=== PATIENT | male | born 1970 | race Caucasian/White ===

== ENCOUNTER 2018-12-31 06:26 | Day surgery (SDC) | payer BC, SELFPAY ==
[2018-12-01 15:49] VITALS: BMI 28.3
[2018-12-31] VITALS (10 sets, daily range): BP systolic 127–159; BP diastolic 79–94; PULSE 65–76; RESP 16; TEMP 36.7–37.1; O2SAT 95–100; BMI 25.8
--- NOTE | 2018-12-31 | IMM_PTH ---
PATIENT: TRACI MARIE LOC: EN U#:[id number] AGE/SX: 48/M ROOM: RE12/31/[address]: Dr. Todd Ortega MD : 1970 BED: DIS: 12/31/2018 SPEC #: [id number] RECD: 01/03/19 12:36 STATUS: DANIELA REJose #: [id number] VIKI: 12/31/18 00:[address]: Todd Ortega DEPT: IMMUNOHISTOCHEMISTRY RECD BY: Lanny Couch ENTERED: 01/03/19 12:38 SP TYPE: IMMUNO OTHR DR: Dr. Todd Allred MD Tissues: B - Rectum, NOS Procedures: MSH2 (add) MLH-1 (add) MSH6 (add) Anti-PMS2 (add) MADDEN-2 (add) P53 (add) KI-67 (initial) PHYSICIAN & INSTITUTION [place] [address] SPECIMEN INFORMATION: Tissue Source: B - Biopsy lesion rectum at 6 cm Clinical Info: Screening Specimen Number: [id number] CPT code: 99524, 41245 x6 METHODOLOGY: Deparaffinized sections of prefer/formalin-fixed tissue or PAP/DQ stained slides are incubated with monoclonal/polyclonal antibodies/oligonucleotide probes. Localization is made via biotin free immunoperoxidase method. Appropriate controls are performed and reacted as expected. Results on target cell population are indicated in the following table: RESULTS: ANTIBODY / CLONE RESULT Block B Ki-67 (30-9) positive, high P53 (DO-7) positive, low MADDEN-2 (SP21) positive MLH-1 (M1) positive MSH2 (25D12) positive MSH6 (44) positive PMS2 (PZS3656) positive These tests were developed and their performance characteristics determined by [facility]. They may not have been cleared or approved by the U.S. Food and Drug Administration. The FDA has determined that such clearance or approval is not necessary. INTERPRETATION: Rectum lesion at 6 cm, biopsy: Invasive adenocarcinoma. Result of Microsatellite Instability Study: Negative (no loss of mismatch protein; no microsatellite instability detected). SJ:laurence 01/04/19
--- NOTE | 2018-12-31 07:30 | COLBX_PTH ---
PATIENT: TRACI MARIE LOC: EN U#:[id number] AGE/SX: 48/M ROOM: RE12/31/[address]: Dr. Todd Ortega MD : 1970 BED: DIS: 12/31/2018 SPEC #: [id number] RECD: 12/31/18 10:09 STATUS: DANIELA DEVIN #: [id number] VIKI: 12/31/18 07:[address]: Todd Ortega DEPT: SURGICAL PATHOLOGY RECD BY: Bonifacio Carpenter ENTERED: 12/31/18 10:59 SP TYPE: COLON BX OTHR DR: Dr. Todd Allred MD Tissues: A - Descending colon B - Rectum, NOS C - Rectum, NOS Procedures: Surgery Specimen Level IV HEADER OPERATION: Colonoscopy (MOD) PRE-OP DIAGNOSIS: Screening TISSUE SUBMITTED: A - Polyp descending colon, B - Biopsy lesion rectum at 6 cm, C - Snare lesion rectum proximal to rectal verge MICROSCOPIC DIAGNOSIS A. Polyp descending colon, biopsy: Tubular adenoma. B. Rectal lesion at 6 cm, biopsy: Invasive moderately differentiated adenocarcinoma arising in the background of tubulovillous adenoma. See comment. C. Snare polyp lesion, rectum, proximal to anal verge, biopsy; Fragments of tubulovillous adenoma. SJ:rg 01/03/19 COMMENT B. Results of immunohistochemistry for microsatellite instability ([id number]) will be reported separately. Case has been reviewed in consultation with Dr. Cuevas who concurs with the above diagnosis. IDC:AM MICROSCOPIC DESCRIPTION Slides are reviewed. GROSS DESCRIPTION A - Received in fixative is one container labeled with the patient's name and designated polyp descending colon. The specimen consists of a piece of quintero-pink polyp measuring 0.3 x 0.3 x 0.2 cm. The specimen is totally submitted in one cassette. B - Received in fixative is one container labeled with the patient's name and designated biopsy lesion rectum at 6 cm. The specimen consists of multiple irregular fragments of light quintero soft tissue that in aggregate measure 1 x 0.5 x 0.1 cm. The specimen is totally submitted in one cassette. C - Received in fixative is one container labeled with the patient's name and designated snare polyp lesion rectum proximal to anal verge. The specimen consists of multiple irregular fragments of quintero-pink polyp, variable size, that in aggregate measure 1.2 x 1 x 0.3 cm. The entire specimen is submitted in one cassette. / SJ:rg 12/31/18 TC:0 [facility]: [address] x3 ADDENDUM ADDENDUM ADDENDUM ADDENDUM ADDENDUM ADDENDUM ADDENDUM ADDENDUM ADDENDUM ADDENDUM ADDENDUM ADDENDUM 01/20/2019 11:18 ADDENDUM 01/20/2019 11:18 ADDENDUM 01/20/2019 11:18 ADDENDUM 01/20/2019 11:18 ADDENDUM 01/20/2019 11:18 This addendum is added to incorporate an outside pathology consultation report. The case was examined at [facility] (#[id number]) and the following diagnosis was rendered. A. Descending colon, polypectomy: Tubular adenoma. B. Rectal mass, biopsy: Invasive adenocarcinoma in the background of a tubulovillous adenoma. C. Rectum, polypectomy: Fragments of tubulovillous adenoma. Please see complete above mentioned consultation report in EMR
--- NOTE | 2018-12-31 08:06 | OP.ENDO_ITS ---
12/31/2018 Todd Allred [address] [place] [address] Re : Colonoscopy procedure for Alfa Lu Dear Dr. Allred This procedure was performed on Monday, December 31, 2018. My impressions and recommendations are as follows: Impressions : - Rectal mass x 2. One larger and ulcerated at 6cm and one very close to the anal verge and approximately 2.5cm - Likely malignant tumors in the distal rectum. Biopsied. - Diverticulosis in the sigmoid colon. - One 8 mm polyp in the descending colon, removed with a hot snare. Resected and retrieved. Recommendations : - Repeat colonoscopy in 1 year for surveillance. - Return to my office in 1 week. - Perform a CT scan (computed tomography) of abdomen with contrast and pelvis with contrast. - Perform magnetic resonance imaging (MRI) with gadolinium. - Continue present medications. My findings are described in the full procedure note, which is enclosed. If I can be of further assistance, please feel free to contact me at Doctor phone number(s): Work: . Sincerely, Todd Ortega MD 12/31/2018 8:05:49 AM This report has been signed electronically.
[2018-12-31 09:17] LABS: Hematocrit 41.8 % (40-54); Hemoglobin 14.6 g/dl (13.0-16.5); Mean Corp Hgb Conc 34.9 g/gl (32-36); Mean Corpuscular Hgb 29.7 pg (27.0-32.0); Mean Corpuscular Volume 85.1 fL (80-94); Mean Platelet Vol. 9.5 fl (6.2-12.0); Platelet Count 274 K/mm3 (150-450); RBC Distribution Width CV 12.8 % (11.6-14.6); RBC Distribution Width SD 39.4 fl (35.1-43.9); Red Blood Count 4.91 M/mm3 (4.6-6.2); Scan Indicated on CBC? Y/N NO
[2018-12-31 09:45] LABS: ALB/GLOB Ratio 1.1 RATIO (0.9-2.4); AST(SGOT) 31 U/L (15-37); Alanine Aminotransfer ALT/SGPT 45 U/L (16-61); Albumin, Serum 4.2 g/dL (3.2-5.0); Alkaline Phosphatase 49 U/L (45-117); Anion Gap 4 (5-15); BUN 14 mg/dL (7-18); BUN/Creat Ratio 12.7 RATIO (10-20); Calcium,Total 8.6 mg/dL (8.5-10.1); Chloride 106 mmol/L (98-107); EST Glomerular Filtration Rate 75 mL/min (>60); Est Glom Filt Rate - Afr Amer 91 mL/min (>60); Estimated Creatinine Clearance 75.11 ml/min; Globulin 3.7 g/dL (2.2-4.2); Glucose 100 mg/dL (74-106); Protein, Total 7.9 g/dL (6.4-8.2); Sodium Level 138 mmol/L (136-145)
--- NOTE | 2018-12-31 11:59 | CT_ITS ---
STUDY: CT ABDOMEN AND PELVIS WITH CONTRAST REASON FOR EXAM: Male, 48 years old. Recent diagnosis of rectal carcinoma. RADIATION DOSAGE (If Supplied By Facility): CTDIvol = ( 15.10 ) mGy, DLP = ( 972.56 ) mGycm TECHNIQUE: Transaxial images were obtained from the dome of the diaphragm to the symphysis pubis with oral contrast. 100ML IV/Oral Isovue 300 was administered. Sagittal and coronal images were reconstructed. Individualized dose optimization techniques were used for this CT. COMPARISON: None. FINDINGS: The visualized lung bases are unremarkable. The visualized portions of the heart are within normal limits. Normal liver. Normal gallbladder and extrahepatic biliary system. Normal spleen. Normal pancreas. Normal bilateral adrenal glands. Normal right kidney. Normal left kidney. Normal visualized stomach. Normal small intestine. There is a 2.8 cm x 2.9 cm soft tissue mass arising from the right side of the rectum. This most likely corresponds to the known rectal carcinoma. The appendix is visualized and appears normal. Normal abdominal aorta. Normal inferior vena cava. Normal retroperitoneum. Normal urinary bladder. There is a small umbilical hernia containing fat. Small right inguinal hernia containing fat. There are degenerative changes of the visualized lumbar spine. CT/Abdomen/Pelvis WITH Contrast IMPRESSION: 2.8 cm x 2.9 sinus soft tissue mass arising from the right side of the rectum. No other abnormalities. Electronically Signed: Fareed Aviles, at 13:52 EDT , Service support ,
--- NOTE | 2018-12-31 13:56 | MRI_ITS ---
STUDY: MR PELVIS WITH T WITHOUT CONTRAST REASON FOR EXAM: Male, 48 years old. Abnormal colonoscopy. TECHNIQUE: Standardized fat and water weighted pulse sequences were obtained in all 3 orthogonal planes, pre-and post contrast administration. 15 IV Dotarem was administered for the contrast portion of the examination. COMPARISON: None. FINDINGS: Normal urinary bladder. Normal visualized small intestine. Normal visualized colon. There is masslike focal circumferential wall thickening of the mid and lower rectum. No pathologically enlarged lymph nodes are visualized within the mesial rectal fat. The prostate gland is within normal limits. There is no pelvic fluid. There is no pelvic mass lesion or lymphadenopathy. Normal visualized pelvic arteries. There are diffuse degenerative changes of the visualized lumbar spine. There is a right inguinal hernia containing fat. MRI/Pelvis W/WO Contrast IMPRESSION: Masslike circumferential wall thickening of the rectum highly suspicious for an underlying malignancy. Electronically Signed: Carmencita Thornton MD at 17:35 EDT Tel , Service support ,
== END 2018-12-31 09:39 | disposition home or self-care (01) ==
LOC: EN 06:28 → AC 09:49 → EN 15:16
PROVIDERS: Family Provider Family Medicine; PCP Family Medicine; Referring Provider Surgery; Visit Provider Surgery
PROC: 0DJD8ZZ Inspection of Lower Intestinal Tract, Via Natural or Artificial Opening Endoscopic (ICD-10-PCS; CPT 45378; principal; 2018-12-31 07:25)
DX: Z12.11 Encounter for screening for malignant neoplasm of colon (principal); C20 Malignant neoplasm of rectum; D12.4 Benign neoplasm of descending colon; D12.7 Benign neoplasm of rectosigmoid junction; K57.30 Diverticulosis of large intestine without perforation or abscess without bleeding
CPT/HCPCS: 45380; 45385; 36415; 72197; 74177; 80053; 82378; 85027; 88305; 88341; 88342; 99152; 99153; A9575; J7120; Q9967; A4216

== ENCOUNTER 2019-08-05 10:06 | Emergency (ER) | payer BC, SELFPAY ==
[2019-08-03 10:27] VITALS: BMI 25.8
[2019-08-05] VITALS (8 sets, daily range): BP systolic 128–147; BP diastolic 67–96; PULSE 72–85; RESP 16–23; TEMP 36.5–37.7; O2SAT 94–97; BMI 29.2
--- NOTE | 2019-08-05 10:34 | RAD_ITS ---
STUDY: X-RAY CHEST REASON FOR EXAM: Male, 49 years old. Patient has a history of rectal carcinoma and chemotherapy. Patient presents with diarrhea. Weakness. TECHNIQUE: Single AP portable view of the chest. COMPARISON: None. FINDINGS: Mild increased markings at the left lung base suggestive of underlying atelectasis and/or early left lower lobe infiltrate. There is no demonstrated pleural abnormality. Normal size heart. Normal mediastinum and jakub. Normal visualized pulmonary arteries. Normal visualized aortic arch and descending thoracic aorta. Normal visualized thoracic spine. Normal visualized ribs, clavicles, and shoulders. There is no demonstrated abnormality of the visualized soft tissue structures of the upper abdomen. RAD/Chest 1 View (Portable) IMPRESSION: Mild increased markings at the left lung base suggestive of linear atelectasis and/or early infiltrate. Follow-up is recommended. Electronically Signed: Fareed Aviles, at 11:14 EST , Service support ,
[2019-08-05 10:53] LABS: Absolute Lymphocyte Count 0.52 X10^3/uL (0.83-4.51); Absolute Neutrophil Count 4.8 X10^3/uL (2.0-7.7); Basophil# 0.03 X10^3/uL; Basophil% 0.5 % (0-1); Eosinophil# 0.02 X10^3/uL; Eosinophils% 0.3 % (0-5); Hematocrit 34.8 % (40-54); Hemoglobin 12.1 g/dL (13.0-16.5); Lymphocyte # 0.52 X10^3/ul (4.0); Lymphocyte % 8.3 % (19-41); Mean Corp Hgb Conc 34.8 g/dL (32-36); Mean Corpuscular Hgb 28.8 pg (27.0-32.0); Mean Corpuscular Volume 82.9 fL (80-94); Mean Platelet Vol. 13.6 fl (6.2-12.0); Monocyte# 0.85 X10^3/uL; Monocyte% 13.5 % (0-10); NRBC Flagged by Analyzer 0.6 % (0-5); Neutrophil # 4.77 X10^3/uL (2.7-7.7); POSITIVE COUNT YES; POSITIVE DIFFERENTIAL YES; RBC Distribution Width CV 15.5 % (11.6-14.6); RBC Distribution Width SD 41.4 fl (35.1-43.9); White Blood Count 6.3 K/mm3 (4.4-11.0)
[2019-08-05] MEDS: 0.9% Normal Saline 1,000 ML 1000 ML IV (11:00)
[2019-08-05] MEDS: Ondansetron 4 MG/2 ML Vial IV (11:00)
[2019-08-05 11:01] LABS: Platelet Count 23 K/mm3 (150-450)
[2019-08-05 11:03] LABS: ALB/GLOB Ratio 0.8 RATIO (0.9-2.4); AST(SGOT) 87 U/L (15-37); Alanine Aminotransfer ALT/SGPT 108 U/L (16-61); Alkaline Phosphatase 95 U/L (45-117); Anion Gap 8 (5-15); BUN 10 mg/dL (7-18); BUN/Creat Ratio 11.1 RATIO (10-20); Calcium,Total 8.6 mg/dL (8.5-10.1); Chloride 106 mmol/L (98-107); EST Glomerular Filtration Rate 95 mL/min (>60); Est Glom Filt Rate - Afr Amer 115 mL/min (>60); Estimated Creatinine Clearance 87.63 ml/min; Globulin 3.8 g/dL (2.2-4.2); Glucose 138 mg/dL (74-106); Lipase 151 U/L (73-393); Potassium 3.4 mmol/L (3.5-5.1); Protein, Total 6.8 g/dL (6.4-8.2); Sodium Level 139 mmol/L (136-145)
[2019-08-05 11:12] LABS: Lactic Acid 2.2 mmol/L (0.4-2.0)
--- NOTE | 2019-08-05 11:12 | ED.RN ---
lactic 2.[address] lab[address] dr bryant aware
[2019-08-05 11:21] LABS: Anisocytosis 1+; Differential Comment SCANNED; Polychromasia RARE
[2019-08-05 11:22] LABS: Macrocytosis RARE
[2019-08-05 11:24] LABS: Platelet Estimate MKD DEC (ADEQ)
--- NOTE | 2019-08-05 11:34 | CT_ITS ---
STUDY: CT ABDOMEN AND PELVIS WITH CONTRAST REASON FOR EXAM: Male, 49 years old. History of rectal carcinoma and chemotherapy. The patient presents with fever. RADIATION DOSAGE (If Supplied By Facility): CTDIvol = ( 18.96 ) mGy, DLP = ( 1018.05 ) mGycm TECHNIQUE: Transaxial images were obtained from the dome of the diaphragm to the symphysis pubis without oral contrast. IV Isovue 370 100 was administered. Sagittal and coronal images were reconstructed. Individualized dose optimization techniques were used for this CT. COMPARISON: Comparison is made with prior examination December 31, 2018. FINDINGS: Minimal increased markings at the lung bases slightly more prominent on the left side. This most likely represents bibasilar atelectasis. The visualized portions of the heart are within normal limits. Small amount of perihepatic and perisplenic fluid. There is decreased attenuation of the liver consistent with steatosis. Pericholecystic fluid with mildly thickened gallbladder wall. Correlation with ultrasound is recommended. Normal spleen. Normal pancreas. Normal bilateral adrenal glands. Normal right kidney. Normal left kidney. There is a small hiatal hernia. Normal small intestine. A colostomy is seen in the anterior right abdominal wall. Normal abdominal aorta. Normal inferior vena cava. Normal retroperitoneum. Normal urinary bladder. 50 fluid is seen in the pelvis as well as in the paracolic gutters bilaterally. Mild increased markings in the peritoneal fat. There is a right-sided inguinal hernia containing adipose tissue. There are degenerative changes of the visualized lumbar spine. CT/Abdomen/Pelvis WITH Contrast IMPRESSION: Small amount of ascites. Diffuse fatty infiltration of the liver. Slightly thickened gallbladder wall with pericholecystic fluid. Fluid is also seen in the paracolic gutters with increased markings in the peritoneal fat. Status post colectomy with the colostomy in the anterior right abdominal wall. Electronically Signed: Fareed Aviles, at 12:23 EST , Service support ,
[2019-08-05 12:25] LABS: Bacteria 0 SEEN /hpf (None Seen); Mucous, Urine 0 SEEN /hpf (<or=2+); Red Blood Cells-Urine 0 SEEN /hpf (0-5); Squamous Epithelial Cells - UA 0 SEEN /hpf (0-5); White Blood Cells 0 SEEN /hpf (0-5)
[2019-08-05] MEDS: 0.9% Normal Saline 1,000 ML 150 ML IV (12:38)
--- NOTE | 2019-08-05 12:39 | ED.VISSUMM ---
- ER Visit Summary Date of Service: 08/05/19 Chief Complaint: [Abdominal pain and nausea] History of Present Illness: The patient is a 49 M [presents to the emergency department with complaint of feeling weak. Patient not felt well for about a week. Patient had chemotherapy a week ago for rectal cancer. Patient had surgery at the [facility] in June I believe and has a ileostomy. Patient referred to the ER today by his primary oncologist Dr. Garsia. Patient has had low-grade fever up to 100.7 at home yesterday. Complains of decreased appetite.] Physical Examination: [HEENT-PERRLA, EOMI. Cranial nerves II through XII grossly intact. TMs clear. Mucous membranes moist. No adenopathy. Cardiovascular-regular rate and rhythm without murmur or ectopy Lungs-clear to auscultation, chest wall stable without crepitus or subcu emphysema Abdomen-normoactive bowel sounds, soft. Patient has tenderness palpation over right upper quadrant with guarding. Patient had positive Oliver sign. There is no rebound, rigidity, or perineal signs. Extremities-intact ?4, normal range of motion, normal pulses, atraumatic] Test Results: [CBC with differential obtained showed a white count of 6.3, hemoglobin 12, hematocrit 35, platelets 23,000. Chemistries unremarkable. Total bili was 0.6 alk phos was 95, ALT 108, AST 87, lipase 151. Tachycardia was elevated 2.2. Blood cultures ordered and pending. Urinalysis pending. Chest x-ray showed left lower lobe atelectasis versus early infiltrate. CT scan of the abdomen pelvis with IV contrast showed thickened gallbladder wall with pericholecystic fluid.] Bladder ultrasound obtained showed a thickened gallbladder wall and some mild pericholecystic fluid. Emergency Department Course and Treatment: [Patient case was discussed with Dr. Jarrod Chavez who asked that we transfer patient to [facility] at the [facility] Patient case was discussed with a Dr. Rodriguez who accepted transfer patient to the [facility]. Treatment Plan: [Transfer for definitive care of suspected cholecystitis] Disposition: [Transfer] Impression: [Abdominal pain/cholecystitis] This note was generated with [employer] dictation software. It may contain incorrect words, spelling, and punctuation that were not noted in review of the chart prior to signing ED Disposition - Plan for ED Patient: Referrals: Todd Allred MD [Primary Care Provider] -
[2019-08-05 12:53] LABS: Color, Urine Yellow (Yellow); Glucose, Dipstick Normal (Normal); Ketone-Dipstick Negative (Negative); Leukocyte Esterase-Dipstick Negative /ul (Negative); Nitrite-Dipstick Negative (Negative); Occult Blood-Urine Negative /ul (Negative); Protein-Dipstick 30 mg/dl (Negative); Urine Bilirubin Dipstick Negative (Negative); Urine Clarity Sl. Cloudy (Clear); Urine Urobilinogen Normal (Normal); Urine pH 6.5 (5.0 - 8.0)
--- NOTE | 2019-08-05 12:56 | US_ITS ---
STUDY: ABDOMINAL ULTRASOUND - RIGHT UPPER QUADRANT REASON FOR VISIT: Male, 49 years old right upper quadrant pain. TECHNIQUE: Ultrasound evaluation of the right upper quadrant was performed with real-time and static cole-scale imaging. TECHNICAL QUALITY: Adequate. COMPARISON: Comparison is made with prior CT scan of the abdomen done earlier today. FINDINGS: Small amount of perihepatic fluid. Liver: The liver measures 17.0 cm. There is increased echogenicity consistent with fatty infiltration. The bile ducts are within normal limits. There is hepatic color flow. The direction of portal flow is hepatopetal. There is no demonstrated mass lesion. Gallbladder: Normal distended gallbladder. The gallbladder wall is thickened and measures 6 mm. There is a negative sonographic Oliver's sign. There is pericholecystic fluid. There are no gallstones. Common Bile Duct (C.B.D.): The common bile duct measures 4.0 mm. Pancreas: Normal size of the head, body of the pancreas. The tail portion is obscured due to overlying bowel gas. There is normal echogenicity of the pancreas. There is no demonstrated pancreatic mass or cyst. Right Kidney: Normal size of the right kidney. The right kidney measures 11.1 cm x 5.7 centimeter x 5.7 cm. Normal renal cortex. The right cortex measures 1.7 cm. There is no demonstrated renal mass or cyst. There is no right hydronephrosis. US/Gallbladder IMPRESSION: Fatty infiltration of the liver. Thickened gallbladder wall. Small amount of pericholecystic fluid. Electronically Signed: Fareed Aviles, at 13:43 EST , Service support ,
[2019-08-05 14:44] LABS: Reflex Lactate? Y
[2019-08-05 15:45] LABS: Lactic Acid 1.5 mmol/L (0.4-2.0)
[2019-08-08 09:50] LABS: Pathologist Review Reviewed
== END 2019-08-05 18:03 | disposition short-term general hospital (02) ==
PROVIDERS: Emergency Provider Emergency Medicine; Family Provider Family Medicine; PCP Family Medicine
DX: R10.9 Unspecified abdominal pain (principal); K81.9 Cholecystitis, unspecified; C20 Malignant neoplasm of rectum; R19.7 Diarrhea, unspecified; Z79.899 Other long term (current) drug therapy; Z93.2 Ileostomy status; Z93.3 Colostomy status; Z85.038 Personal history of other malignant neoplasm of large intestine
CPT/HCPCS: 71045; 74177; 76705; 80053; 81001; 83605; 83690; 85025; 87040; 87493; 87506; 96361; 96365; 96375; 99285; J2185; J7030; Q9967; A4216; J2405

== ENCOUNTER 2019-08-24 08:52 | Day surgery (SDC) | payer BC, SELFPAY ==
[2019-01-03 15:34] VITALS: BMI 25.8
--- NOTE | 2019-08-03 02:16 | HP_ITS ---
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 Is patient in pain?: No Allergies No Known Allergies Allergy (Verified 08/03/19 10:08) Medications capecitabine 500 mg tablet PO PRN tab 08/03/19 [History Confirmed 08/03/19] diphenoxylate-atropine 2.5 mg-0.025 mg tablet mg PO BID tab 08/03/19 [History Confirmed 08/03/19] gabapentin 300 mg capsule 300 mg PO BID 08/03/19 [History Confirmed 08/03/19] ondansetron HCl 8 mg tablet 8 mg PO BID PRN 08/03/19 [History Confirmed 08/03/19] oxycodone 5 mg tablet 5 mg PO DAILY 08/03/19 [History Confirmed 08/03/19] psyllium husk 3.4 gram/5.4 gram oral powder 1 tbsp PO DAILY 08/03/19 [History Confirmed 08/03/19] PFSH Medical History (Updated 08/03/19 @ 11:28 by Lydia Morelos) Tubular adenoma of colon (Acute) Tubulovillous adenoma of rectum (Acute) Rectal cancer (Acute) Screening for intestinal cancer (Acute) Blood in stool (Acute) Hypokalemia (Acute) Surgical History (Updated 08/03/19 @ 10:07 by Lydia Morelos) History of colonoscopy (Acute) History of colectomy (Acute) History of laparoscopic appendectomy (Acute) History of left inguinal hernia repair (Acute) Family History (Updated 12/01/18 @ 15:48 by Ly Salgado) Grandmother Breast cancer Uncle Cancer Prostate cancer Social History (Updated 08/03/19 @ 14:17 by Todd Ortega MD) Smoking Status: Never smoker alcohol intake: current alcohol intake frequency: a few times a month substance use type: does not use HPI HPI HPI: TRACI MARIE, is a 49 M who presents to the office today for HPI HPI Surgical H&P: Yes HPI: TRACI MARIE, is a 49 M who presents to the office today for surgical consultation regarding placement of a port. The patient is referred by his medical oncologist Dr. Александр Garsia and a written copy of my surgical consult recommendations will be returned to him. The patient has undergone neoadjuvant chemoradiation for rectal cancer. I help diagnose that for him. He subsequently has had surgery per Dr. Hussein Ryder which included a laparoscopic transanal total mesorectal resection on May 30, 2019. He has a diverting ileostomy. His margins were clear. He has ongoing chemotherapy treatment but he is finding it hard to remain hydrated and IV access is weaning. The patient is referred for placement of a port to facilitate his management. His next chemotherapy is due August 17. The previous colonoscopy that I performed for him was December 31, 2018 helping diagnosis disease. ROS General General: No weight change, appetite, fatigue, colon cancer, breast cancer or weakness HEENT HEENT: No difficulty swallowing, eye injury, eye surgery, swollen glands or hoarseness Endo Endocrine: No thyroid disease, diabetes mellitus, thyroid cancer, Hair loss, heat intolerance or cold intolerance Skin Skin: No rash or changing moles Breast Breast: No left breast lump, right breast lump, nipple discharge, breast pain, abnormal mammogram, abnormal US or breast enlargement Musc Musculoskeletal: No back problems, arthritis, rheumatoid arthritis, gout or joint pain Cardio Cardiovascular: No murmur, pacemaker, heart disease, atrial fibrillation, high blood pressure, heart attack, heart stent, palpitations, shortness of breat with exertion or chest pain Psych Psychiatric: No depression, anxiety or hearing voices Resp Respiratory: No shortness of breath, No sleep apnea, No cough, No COPD, No asthma, No emphysema, No wheezing Gastro Gastrointestinal: No abdominal pain, No nausea or vomiting, No diarrhea, No constipation, Yes blood in stool, No acid reflux, No hemorrhoids, No ulcers, No gallbladder problem, No black,tarry stools Mina Hematologic: No blood thinners, No blood disorders, No bleeding, No anemia, No blood clots Neuro Neurologic: No weakness Exam Const General: cooperative, no acute distress, lethargic Other: Patient appears somewhat fatigued and weak Chest Chest palpation & inspection: normal inspection of the chest Breast Palpation: No nipple discharge Resp Effort & Inspection: normal respiratory effort Cardio Rate: regular rate Rhythm: regular rhythm Heart Sounds: no murmurs GI Palpation: soft, no hepatosplenomegaly Other: Ileostomy bag right lower quadrant, soft nontender, normal bowel sounds Neuro Cognition: normal cognition Extrem General: no calf tenderness bilaterally Psych Affect: normal affect Assessment & Plan Problems 1. Rectal cancer C20 Plan I recommended the patient right internal jugular port placement and I have discussed with him the technique, benefits, risks and alternatives. He has had an opportunity to ask and have questions answered. We will time to schedule and time his procedure to have it in place prior to his next chemotherapy. I very much appreciate the kind opportunity of continuing with his surgical care. CC: Dr. Александр Garsia and Dr. Todd Allred and Dr. Hussein Ortega M.D., F.A.C.S. Coding Level of Care Code Off vis,est,level 3 Diagnoses Rectal cancer C20 08/03/19 1417 <Electronically signed by Todd rubio MD> Date _ Todd Ortega MD I have re-examined the patient. There are no clinical changes since date of exam.
[2019-08-05 10:08] VITALS: BMI 29.2
--- NOTE | 2019-08-24 08:59 | EKG12_ITS ---
Test Reason : PRE OP Blood Pressure : / mmHG Vent. Rate : 064 BPM Atrial Rate : 064 BPM P-R Int : 196 ms QRS Dur : 090 ms QT Int : 404 ms P-R-T Axes : 057 013 021 degrees QTc Int : 416 ms Normal sinus rhythm Normal ECG No previous ECGs available Confirmed by INEZ BECKETT ([id number]), offline editor JAMES CUI ([id number]) on 08/28/2019 10:44:37 AM Referred By: Todd Ortega Confirmed By:INEZ BECKETT
[2019-08-24 09:24] LABS: Hematocrit 35.6 % (40-54); Hemoglobin 11.4 g/dL (13.0-16.5); Mean Corpuscular Hgb 27.5 pg (27.0-32.0); Mean Corpuscular Volume 85.8 fL (80-94); Mean Platelet Vol. 9.2 fl (6.2-12.0); Platelet Count 265 K/mm3 (150-450); Red Blood Count 4.15 M/mm3 (4.6-6.2); White Blood Count 4.4 K/mm3 (4.4-11.0)
[2019-08-24 09:33] VITALS: BP 117/70; PULSE 67; RESP 15; TEMP 36.6; O2SAT 100; BMI 26.4
[2019-08-24 09:35] LABS: Anion Gap 5 (5-15); BUN 14 mg/dL (7-18); BUN/Creat Ratio 15.2 RATIO (10-20); Calcium,Total 9.1 mg/dL (8.5-10.1); Chloride 111 mmol/L (98-107); Creatinine, Serum 0.92 mg/dL (0.70-1.30); EST Glomerular Filtration Rate 92 mL/min (>60); Est Glom Filt Rate - Afr Amer 111 mL/min (>60); Glucose 94 mg/dL (74-106); Sodium Level 141 mmol/L (136-145)
[2019-08-24] MEDS: Lactated Ringers 1,000 ML 100 ML IV (09:38)
--- NOTE | 2019-08-24 11:12 | DCINST_ITS ---
Discharge Diet: No Restrictions - Pain medication may cause nausea. You should typically eat light foods as you take your pain medication. Discharge Activity: Return to Normal Activity, May Shower - Leave the bandage on for 2-3 days. When you remove the bandage, leave the steri-strips intact until they fall off. Additional Activity Instructions:: May not drive, work with heavy equipment, or sign legal documents for [address] if you are no longer taking narcotic pain medications. You may drive when you are no longer taking pain medications. Additional Dressing/Incision Instructions:: Leave the bandage on for 2-3 days. When you remove the bandage, leave the steri-strips intact until they fall off. Allergies/Adverse Reactions: Allergies No Known Allergies Allergy (Verified 08/24/19 09:32) Medications to take at Discharge ondansetron HCl 8 mg tablet 8 mg PO BID PRN 08/03/19 Primary Care Physician: Todd Allred MD [Primary Care Provider] - Test Results: Test results from this visit will be discussed in further detail at your follow- up appointment, if applicable. Please Follow Up With: Todd Ortega MD - [phone] When: Please contact the office with any concerns
[2019-08-24] MEDS: Cefazolin 2 GM in 0.9% Normal Saline 100 ML IV (11:15)
--- NOTE | 2019-08-24 12:04 | OP.PCM_ITS ---
Problem List (1) Rectal cancer Status: Acute Report of Operation Date of Procedure: 08/24/19 Pre-Operative Diagnosis: Rectal cancer in need of venous access for chemotherapy Post-Operative Diagnosis: Same Surgery/Procedure Performed:: Right internal jugular 6 Armenian PowerPort placement. Reference #[id number]. Lot number [id number]. Expiry date 12/19/2020 Description of Surgical Findings:: Timeout and informed consent was obtained. 49-year-old gentleman was taken to the operating room placed on the table underwent monitored anesthesia care. Ancef 2 g given intravenously. The right neck and chest were sterilely prepped and draped. 1% lidocaine mixed 50-50 with 0.5% Marcaine was used as a local anesthetic. A total of 16 cc was used. Under ultrasound guidance the right internal jugular vein was identified local was instilled micropuncture needle inserted micropuncture wire inserted fluoroscopy demonstrated good positioning local instilled down upon the right chest wall transverse incision was made midclavicular space second intercostal space DrLuis Miguel cautery was used to make a subcutaneous pocket the tubing was tunneled from the chest to the neck site then micropuncture sheath dilator was placed over the wire this was exchanged out with an 035 J-wire then the sheath dilator was inserted the tubing had been tunneled from the chest to the neck he was advanced through the sheath the sheath was split the catheter was positioned at the SVC atrial junction it was amputated to length connected the port secured with the port attachment device. The port was placed in the pocket secured there with 2-0 silk sutures. The port site was closed interrupted 3-0 Vicryl subdermal stitches. The neck was closed with interrupted 5-0 Vicryl subdermal stitch. Steri-Strips Telfa OpSite dressings applied. The port was accessed and aspirated easily it was flushed with saline and then 2 cc of heparinized saline. Sponge and instrument and needle counts reported the surgeon be correct. Specimens none. Drains none. Blood loss minimal. The patient was taken to the recovery area in satisfactory addition without apparent complication. Stat portable chest x-ray is pending. Todd Ortega M.D., F.A.C.S. Type of Anesthesia:: Local MAC Anesthesiologist: Billy Banks
[2019-08-24] MEDS: Bupivacaine Mpf 0.5% 30 ML VIAL (12:06)
[2019-08-24 12:15] VITALS: BP 109/77; BP 117/70; PULSE 80; RESP 16; TEMP 37.1; O2SAT 98
[2019-08-24 12:20] VITALS: BP 117/70; BP 117/77; PULSE 72; RESP 16; O2SAT 100
[2019-08-24 12:25] VITALS: BP 113/69; BP 117/70; PULSE 72; RESP 16; O2SAT 99
--- NOTE | 2019-08-24 12:25 | RAD_ITS ---
STUDY: X-RAY CHEST REASON FOR EXAM: Male, 49 years old. Port placement. TECHNIQUE: Single AP portable view of the chest. COMPARISON: Comparison is made with prior study dated August 05, 2019. FINDINGS: A right-sided caro catheter has been placed. The tip is in the proximal portion of the superior vena cava. EKG electrodes are seen. The lungs are clear and expanded. There is no demonstrated pleural abnormality. Normal size heart. Normal mediastinum and jakub. Normal visualized pulmonary arteries. Normal visualized aortic arch and descending thoracic aorta. There are degenerative changes of the visualized thoracic spine. Normal visualized ribs, clavicles, and shoulders. There is no demonstrated abnormality of the visualized soft tissue structures of the upper abdomen. RAD/CXR for Line Placement IMPRESSION: The tip of the caro catheter is in the proximal portion of the superior vena cava. Electronically Signed: Fareed Aviles, at 13:34 EST , Service support ,
[2019-08-24 12:30] VITALS: BP 112/73; BP 117/70; PULSE 70; RESP 16; O2SAT 100
[2019-08-24 12:35] VITALS: BP 111/75; BP 117/70; PULSE 70; RESP 16; TEMP 36.9; O2SAT 100
== END 2019-08-24 13:54 | disposition home or self-care (01) ==
LOC: SDC 08:52 → AC 08:54
PROVIDERS: Family Provider Family Medicine; PCP Family Medicine; Referring Provider Surgery; Visit Provider Surgery
PROC: (CPT 36561; principal; 2019-08-24 10:45)
DX: Z45.2 Encounter for adjustment and management of vascular access device (principal); C20 Malignant neoplasm of rectum; Z79.899 Other long term (current) drug therapy
CPT/HCPCS: 00532; 36561; 76937; 36415; 71045; 77001; 80048; 85027; 93005; J7120

== ENCOUNTER 2020-06-29 06:05 | Day surgery (SDC) | payer BC, SELFPAY ==
[2020-05-09 15:38] VITALS: BMI 26.4
[2020-06-29 06:37] VITALS: BP 126/79; PULSE 60; RESP 18; TEMP 37.2; O2SAT 98; BMI 26.4
[2020-06-29] MEDS: Lactated Ringers 1,000 ML 100 ML IV (06:57)
--- NOTE | 2020-06-29 07:04 | HP.PCM_ITS ---
Problem List (1) History of rectal cancer Status: Acute History and Physical Date of Admission: 06/29/20 Intake Intake Visit Reasons: 1 YR F/U C-SCOPE DUE IN SEPT Chief Complaint: c-scope consult Administrative Services Assistant Required: No Is patient in pain?: No Allergies No Known Allergies Allergy (Verified 05/09/20 15:17) [facility] Medical History Tubular adenoma of colon (Acute) Tubulovillous adenoma of rectum (Acute) Rectal cancer (Acute) Screening for intestinal cancer (Acute) Blood in stool (Acute) Hypokalemia (Acute) Surgical History History of colonoscopy (Acute) History of colectomy (Acute) History of laparoscopic appendectomy (Acute) History of left inguinal hernia repair (Acute) Family History Grandmother Breast cancer Uncle Cancer Prostate cancer Social History (Updated 05/09/20 @ 16:[address] Todd Ortega MD) Smoking Status: Never smoker alcohol intake: current alcohol intake frequency: a few times a month substance use type: does not use HPI HPI HPI: TRACI MARIE, is a 50 M who presents to the office today for surgical consultation for surveillance colonoscopy. The patient's primary care physician is Dr. Todd Allred. His oncologist is Dr. Александр Garsia. His colorectal surgeon is Dr. Hussein Ryder. Colorectal physician apartment community assistant manager is Reema Acuna. I assisted him December 31, 2018 with a colonoscopy. There were 2 separate rectal masses one at about 6 cm from the verge and the second 1 slightly smaller within about 2.5 cm to the anal verge. There was an additional polyp in the descending colon. The patient underwent a laparoscopic transanal total mesorectal excision on May 30, 2019. Pathology showed residual invasive moderately differentiated adenocarcinoma extending into the submucosa.. This was after neoadjuvant chemotherapy. At the time of the clinical exam there was a more distal tubulovillous adenoma closer to the anal verge and then a separate invasive adenocarcinoma slightly more proximally in the rectum. In addition the patient had a diverting loop ileostomy. From the chemotherapy then on August 07, 2019 and he had acute cholecystitis treated with laparoscopic cholecystectomy. He was markedly thrombocytopenic and required replacement prior to proceeding. pT1 pN0 pM I have also assisted the patient previously with a right IJ port placement to facilitate his treatment. HPI HPI HPI: TRACI MARIE, is a 50 M who presents to the office today for ROS General General: No weight change, appetite, fatigue, colon cancer, breast cancer or weakness HEENT HEENT: No difficulty swallowing, eye injury, eye surgery, swollen glands or hoarseness Endo Endocrine: No thyroid disease, diabetes mellitus, thyroid cancer, Hair loss, heat intolerance or cold intolerance Skin Skin: No rash or changing moles Breast Breast: No left breast lump, right breast lump, nipple discharge, breast pain, abnormal mammogram, abnormal US or breast enlargement Musc Musculoskeletal: No back problems, arthritis, rheumatoid arthritis, gout or join t pain Cardio Cardiovascular: No murmur, pacemaker, heart disease, atrial fibrillation, high blood pressure, heart attack, heart stent, palpitations, shortness of breat with exertion or chest pain Psych Psychiatric: No depression, anxiety or hearing voices Resp Respiratory: No shortness of breath, No sleep apnea, No cough, No COPD, No asthma, No emphysema, No wheezing Gastro Gastrointestinal: No abdominal pain, No nausea or vomiting, No diarrhea, No constipation, Yes blood in stool, No acid reflux, No hemorrhoids, No ulcers, No gallbladder problem, No black,tarry stools Mina Hematologic: No blood thinners, No blood disorders, No bleeding, No anemia, No blood clots Neuro Neurologic: No weakness Exam Const General: cooperative, healthy appearing, comfortable, no acute distress Nutritional Appearance: average body habitus Orientation: alert, awake [facility] Head: normal to inspection Chest Breast Palpation: No nipple discharge Resp Effort & Inspection: normal respiratory effort Auscultation: clear to auscultation bilaterally Cardio Rate: regular rate Rhythm: regular rhythm Heart Sounds: no murmurs GI Palpation: soft, no hepatosplenomegaly Auscultation: normal bowel sounds Neuro General: alert Extrem General: no calf tenderness Psych Affect: normal affect Assessment & Plan Problems 1. History of rectal cancer Z85.048 Plan 50-year-old gentleman. History of rectal cancer. He received neoadjuvant and therapeutic postsurgical chemotherapy. He is in need of a surveillance colonoscopy and current recommendations have been made to him to proceed every 6 monthly. He claims that he is having troubles with chronic constipation. He is tried some fiber supplementation. We discussed various fiber supplementation products with additional consideration for him trying MiraLAX. He will consider those options. We discussed the fact that he is only getting blood work now through his port about every 3 months and he has not been presenting for flushing in between. I have asked that he follow-up with Dr. Александр Garsia about a more frequent port flushing schedule. I have discussed with him technique benefit risk complications alternatives of a colonoscopy with possible biopsy or polypectomy is indicated. He has had an opportunity to ask and have questions answered. A request has been made to have this procedure performed May 2020. We will schedule and proceed at his discretion. I very much appreciate the kind opportunity to continue to assist with her surgical care. Copy: Dr. Hussein Ryder and Reema Acuna PA-C and Dr. Александр Garsia and Dr. Todd Ortega M.D., F.A.C.S. The patient did have a positive COVID test. He quarantined for 10 days. A repeat COVID test was negative. He has been asymptomatic. He presents today now to follow through with his surveillance colonoscopy. Todd Ortega M.D., F.A.C.S. Procedure Criteria Procedure Type: Elective COVID Risk Discussion: The surgeon/proceduralist and patient have discussed in detail the risk of exposure to and/or potential harm posed by the COVID-19 virus with having a surgery/procedure at this time versus the risk of delaying the surgery/procedure. It is not possible to know either the risk of delaying the surgery or procedure or chance of getting an infection with perfect accuracy, but a joint decision was made between the patient and the surgeon/proceduralist to proceed at this time with the scheduled surgery/procedure as indicated on the consent form.
--- NOTE | 2020-06-29 07:15 | COLBX_PTH ---
PATIENT: TRACI MARIE LOC: [facility] U#:[id number] AGE/SX: 50/M ROOM: RE06/29/[address]: Dr. Todd Ortega MD : 1970 BED: DIS: 06/29/2020 SPEC #: [id number] RECD: 06/29/20 11:51 STATUS: DANIELA BELTRAN #: [id number] VIKI: 06/29/20 07:[address]: Todd Ortega DEPT: SURGICAL PATHOLOGY RECD BY: Ru Martins ENTERED: 06/29/20 13:21 SP TYPE: COLON BX OTHR DR: Dr. Todd Allred MD Tissues: COLON BIOPSY Procedures: Surgery Specimen Level IV HEADER OPERATION: Colonoscopy (MAC) PRE-OP DIAGNOSIS: History rectal CA TISSUE SUBMITTED: Random colonic biopsy MICROSCOPIC DIAGNOSIS Colon, random biopsy: No pathologic change. AM:laurence 07/02/20 MICROSCOPIC DESCRIPTION Slides are reviewed. GROSS DESCRIPTION Received in fixative is one container labeled with the patient's name and designated random colonic biopsy. The specimen consists of multiple irregular fragments of light quintero soft tissue that in aggregate measure 1 x 0.6 x 0.1 cm. The specimen is totally submitted in one cassette. / SJ:rg 06/29/20 TC:5 CPT: 42640
[2020-06-29 07:30] VITALS: BP 112/84; BP 126/79; PULSE 58; RESP 16; TEMP 36.7; O2SAT 99
[2020-06-29 07:35] VITALS: BP 108/74; BP 126/79; PULSE 55; RESP 16; O2SAT 98
--- NOTE | 2020-06-29 07:38 | OP.COLON_ITS ---
Patient Name: Alfa Lu Procedure Date: 06/29/2020 7:04 AM Date of : 1970 Age: 50 Procedure: Colonoscopy Indications: High risk colon cancer surveillance: Personal history of colon cancer Providers: Todd Ortega MD Referring MD: Todd Allred Medicines: See the Anesthesia note for documentation of the administered medications Patient Profile: Last Colonoscopy: 1 year ago. Complications: No immediate complications. Procedure: Pre-Anesthesia Assessment: - Prior to the procedure, a History and Physical was performed, and patient medications and allergies were reviewed. The patient's tolerance of previous anesthesia was also reviewed. The risks and benefits of the procedure and the sedation options and risks were discussed with the patient. All questions were answered, and informed consent was obtained. Prior Anticoagulants: The patient has taken no previous anticoagulant or antiplatelet agents. ASA Grade Assessment: II - A patient with mild systemic disease. After reviewing the risks and benefits, the patient was deemed in satisfactory condition to undergo the procedure. After I obtained informed consent, the scope was passed under direct vision. Throughout the procedure, the patient's blood pressure, pulse, and oxygen saturations were monitored continuously. The Colonoscope was introduced through the anus and advanced to the cecum, identified by appendiceal orifice and ileocecal valve. The colonoscopy was performed without difficulty. The patient tolerated the procedure well. The quality of the bowel preparation was good. The ileocecal valve and the appendiceal orifice were photographed. Scope In: 7:15:48 AM Scope Withdrawal Time 0 hours 7 minutes 35 seconds Scope Out: 7:27:58 AM Total Procedure Duration Time 0 hours 12 minutes 10 seconds Findings: The perianal exam was abnormal. Surgical changes noted. Scattered diverticula were found in the sigmoid colon. Biopsies for histology were taken with a cold forceps from the entire colon for evaluation of microscopic colitis. There was evidence of a prior end-to-end colo-anal anastomosis at the anus and in the rectum. This was patent and was characterized by healthy appearing mucosa and mild stenosis. Impression: - Abnormal perianal exam. Surgical changes, minimal stenosis, widely patent, healthy appearance - Diverticulosis in the sigmoid colon. Biopsied. - Patent end-to-end colo-anal anastomosis, characterized by healthy appearing mucosa and mild stenosis. Recommendation: - Discharge patient to home. - Resume previous diet. - Continue present medications. - Repeat colonoscopy in 1 year for surveillance. - Telephone my office for pathology results in 1 week. Procedure Code(s): --- Professional --- 97311, Colonoscopy, flexible; with biopsy, single or multiple Diagnosis Code(s): --- Professional --- Z85.038, Personal history of other malignant neoplasm of large intestine Z98.0, Intestinal bypass and anastomosis status K57.30, Diverticulosis of large intestine without perforation or abscess without bleeding CPT copyright 2017 [employer]. All rights reserved. The codes documented in this report are preliminary and upon forwarder operator review may be revised to meet current compliance requirements. Todd Ortega MD 06/29/2020 7:38:00 AM This report has been signed electronically. Number of Addenda: 0 Note Initiated On: 06/29/2020 7:04 AM
--- NOTE | 2020-06-29 07:38 | OP.CCLET_ITS ---
06/29/2020 Jethro Zhang Re : Colonoscopy procedure for Alfa Zhang This procedure was performed on Monday, June 29, 2020. My impressions and recommendations are as follows: Impressions : - Abnormal perianal exam. Surgical changes, minimal stenosis, widely patent, healthy appearance - Diverticulosis in the sigmoid colon. Biopsied. - Patent end-to-end colo-anal anastomosis, characterized by healthy appearing mucosa and mild stenosis. Recommendations : - Discharge patient to home. - Resume previous diet. - Continue present medications. - Repeat colonoscopy in 1 year for surveillance. - Telephone my office for pathology results in 1 week. My findings are described in the full procedure note, which is enclosed. If I can be of further assistance, please feel free to contact me at Doctor phone number(s): Work: . Sincerely, Todd Ortega MD 06/29/2020 7:38:00 AM This report has been signed electronically.
[2020-06-29 07:40] VITALS: BP 117/82; BP 126/79; PULSE 60; RESP 16; O2SAT 98
[2020-06-29 07:45] VITALS: BP 119/82; BP 126/79; PULSE 59; RESP 16; TEMP 36.8; O2SAT 100
[2020-06-29 08:09] VITALS: BP 126/79
== END 2020-06-29 08:29 | disposition home or self-care (01) ==
LOC: EN 06:06 → AC 06:25
PROVIDERS: Anesthesiology; PCP Family Medicine; Referring Provider Family Medicine; Visit Provider Surgery
PROC: 0DJD8ZZ Inspection of Lower Intestinal Tract, Via Natural or Artificial Opening Endoscopic (ICD-10-PCS; CPT 45378; principal; 2020-06-29 07:10)
DX: Z12.11 Encounter for screening for malignant neoplasm of colon (principal); K57.30 Diverticulosis of large intestine without perforation or abscess without bleeding; Z85.048 Personal history of other malignant neoplasm of rectum, rectosigmoid junction, and anus; Z98.0 Intestinal bypass and anastomosis status; Z11.59 Encounter for screening for other viral diseases
CPT/HCPCS: 45380; 87635; 88305; C9803; J7120; A4216; J2405; U0003

== ENCOUNTER 2020-12-03 06:32 | Emergency (ER) | payer BC, SELFPAY ==
[2020-11-30 13:46] VITALS: BMI 26.6
[2020-12-03 06:32] VITALS: BP 155/108; PULSE 63; RESP 16; TEMP 36.6; O2SAT 99; BMI 27.9
--- NOTE | 2020-12-03 06:42 | CT_ITS ---
STUDY: CT ABDOMEN AND PELVIS WITH CONTRAST REASON FOR EXAM: Male, 50 years old. BACK PAIN RADIATING TO RT GROIN X 2 WEEKS, HX-RECTAL CA WITH RESECTION AND CHEMO-LAST CHEMO 11/2019, APPY, MIGUEL RADIATION DOSAGE (If Supplied By Facility): CTDIvol = ( 16.11 ) mGy, DLP = ( 1346.29 ) mGycm TECHNIQUE: Transaxial images were obtained from the dome of the diaphragm to the symphysis pubis without oral contrast. IV 100mL Isovue-300 was administered. Sagittal and coronal images were reconstructed. Individualized dose optimization techniques were used for this CT. COMPARISON: Comparison is made with prior study dated 08/05/2019. FINDINGS: The visualized lung bases are unremarkable. The visualized portions of the heart are within normal limits. There is decreased attenuation of the liver consistent with steatosis. Mild degree of the central intrahepatic biliary ductal dilatation most likely secondary to prior cholecystectomy. There are surgical clips in the gallbladder fossa consistent with a prior cholecystectomy. Normal spleen. Normal pancreas. Normal bilateral adrenal glands. Normal right kidney. Normal left kidney. Normal visualized stomach. Normal small intestine. The previously seen colostomy in the right lower quadrant has been reversed. The patient is status post appendectomy. Normal abdominal aorta. Normal inferior vena cava. Normal retroperitoneum. Normal urinary bladder. There is a small umbilical hernia containing fat. Small right inguinal hernia containing fat. There are diffuse degenerative changes of the visualized lumbar spine. CT/Abdomen/Pelvis WITH Contrast IMPRESSION: Diffuse fatty infiltration of the liver. Status post cholecystectomy. Reversal of the previously seen colostomy in the anterior right lower quadrant. Electronically Signed: Fareed Aviles MD at 9:38 EDT , Service support ,
--- NOTE | 2020-12-03 06:42 | CT_ITS ---
STUDY: CT LUMBAR SPINE WITH CONTRAST REASON FOR EXAM: Male, 50 years old. BACK PAIN RADIATING TO RT GROIN X 2 WKS, HX-RECTAL CA WITH RESECTION AND CHEMO, APPY, MIGUEL RADIATION DOSAGE (If Supplied By Facility): CTDIvol = ( 16.11 ) mGy, DLP = ( 1346.29 ) mGycm TECHNIQUE: The patient was scanned in a multi detector CT scanner. High resolution transaxial imaging was performed following the intravenous administration of IV 100mL Isovue-300. Images were obtained from L1 to S1 vertebral level. Sagittal and coronal images were reconstructed. Individualized dose optimization techniques were used for this CT. COMPARISON: None FINDINGS: Normal lumbar lordosis. There is no substantial scoliosis. Normal vertebrae of the lumbar spine. L1-2: Mild degree of disc space narrowing. Mild degree of diffuse posterior disc bulge with facet joint hypertrophy causing mild degree of bilateral neural foraminal stenosis. L2-3: Mild degree of disc space narrowing. Mild degree of diffuse posterior disc bulge with hypertrophy of the facet joints causing a mild degree of bilateral neural foraminal stenosis. L3-4: Marked degree of disc space narrowing with spondylosis. Moderate degree of diffuse posterior disc bulge slightly worse on the right side of the midline causing bilateral neural foraminal stenosis worse on the right side. L4-5: Moderate degree of disc space narrowing. Diffuse posterior disc bulge. This is worse on the right side with bilateral neural foraminal stenosis worse on the right side. L5-S1: Mild degree of disc space narrowing. Facet joint osteoarthritis and hypertrophy worse on the right side. There is evidence of a spondylolysis of the pars interarticularis of the L5 vertebrae bilaterally. Normal visualized paraspinous soft tissue structures. CT/Spine Lumbar WITH Contrast IMPRESSION: Disc space narrowing and moderate degree of bilateral neural foraminal stenosis worse on the right side at the L3-L4 and L4-L5 levels. Electronically Signed: Fareed Aviles MD at 9:41 EDT , Service support ,
[2020-12-03 06:59] LABS: Absolute Lymphocyte Count 1.23 X10^3/uL (0.83-4.51); Absolute Neutrophil Count 6.1 X10^3/uL (2.0-7.7); Basophil# 0.02 X10^3/uL; Basophil% 0.2 % (0-1); Eosinophil# 0.01 X10^3/uL; Eosinophils% 0.1 % (0-5); Hematocrit 40.1 % (40-54); Hemoglobin 13.8 g/dL (13.0-16.5); Lymphocyte # 1.23 X10^3/ul (4.0); Mean Corp Hgb Conc 34.4 g/dL (32-36); Mean Corpuscular Hgb 29.7 pg (27.0-32.0); Mean Corpuscular Volume 86.4 fL (80-94); Mean Platelet Vol. 9.3 fl (6.2-12.0); Monocyte% 9.8 % (0-10); NRBC Flagged by Analyzer 0 % (0-5); Neutrophil # 6.09 X10^3/uL (2.7-7.7); Neutrophil % 74.3 % (47-70); Platelet Count 226 K/mm3 (150-450); RBC Distribution Width SD 40.5 fl (35.1-43.9); Red Blood Count 4.64 M/mm3 (4.6-6.2); White Blood Count 8.2 K/mm3 (4.4-11.0)
[2020-12-03 07:16] LABS: Anion Gap 5 (5-15); BUN 19 mg/dL (7-18); BUN/Creat Ratio 19.7 RATIO (10-20); Calcium,Total 9.2 mg/dL (8.5-10.1); Chloride 103 mmol/L (98-107); Creatinine, Serum 0.96 mg/dL (0.70-1.30); EST Glomerular Filtration Rate 87 mL/min (>60); Est Glom Filt Rate - Afr Amer 105 mL/min (>60); Estimated Creatinine Clearance 84.16 ml/min; Glucose 112 mg/dL (74-106); Potassium 3.9 mmol/L (3.5-5.1); Sodium Level 138 mmol/L (136-145)
--- NOTE | 2020-12-03 07:16 | ED.VIS.BACK ---
History of Present Illness Chief Complaint: Back Narrative: Patient presenting for evaluation secondary to back pain. Patient has a underlying history of rectal cancer status post resection. Patient tells me that over the course of the last 3 weeks he has had an atraumatic onset of lower back pain. It is in his left lower back, radiates around to his groin. He states that it is a continuous type pain, does not wax and wane, is worse with change in position. Patient denies any bowel or bladder incontinence but does report that he has constipation which is typical for him and is at baseline. No numbness or weakness. Patient denies any fevers chills night sweats or unintended weight loss associated with this. Patient had a CT scan scheduled later this week, but his pain is persistent enough that he felt that he would like it earlier. He has been on a course of prednisone with modest relief. Review of systems otherwise negative. Past Medical History - Allergies and Home Meds Allergies/Adverse Reactions: Allergies No Known Allergies Allergy (Verified 12/03/20 06:44) Primary Care Physician: Todd Allred MD [Primary Care Provider] - Prior records reviewed: Yes Past Medical History: - - Past history of rectal cancer Lives: Spouse/ Significant Other Smoking Status: Never smoker Alcohol: None Drugs: None Review of Systems All systems negative except as indicated General: Denies: Chills, Fever, Sweats Eyes: Denies: Visual changes - bilaterally, Diplopia ENT: Denies: Rhinorrhea, Sore throat Cardiovascular: Denies: Chest pain, Palpitations Respiratory: Denies: Dyspnea, Cough, Dyspnea on exertion Gastrointestinal: Denies: Abdominal pain, Nausea, Vomiting, Diarrhea, Melena, Hematochezia Genitourinary: Denies: Dysuria, Hematuria, Frequency Musculoskeletal: Reports: Back pain Skin: Denies: Rash, Wounds Neurological: Denies: Headache, Weakness, Numbness Physical Exam Vital Signs/Narrative: Vital Signs Temp Pulse Resp BP Pulse Ox 12/03/20 06:32 97.9 F 63 16 155/108 H 99 Inital Vital Signs reviewed: Yes General: Well nourished, Well developed Head: Normocephalic, Atraumatic Eyes: Perrl, EOMI ENT: Moist mucous membranes, No rhinorrhea Neck: Supple, Nontender Cardiovascular: Regular rate, Regular rhythm, No murmurs Respiratory: No distress, CTA bilaterally, Chest nontender Abdomen: Soft, Nontender, Nondistended, Normal bowel sounds Back: Normal Inspection, - - Some reproducible tenderness over the patient's left SI joint Extremeties: Nontender, No edema Skin: Normal color, No rash Neuro: Alert, Oriented, Normal Strength, Normal Sensation, Normal DTR, Normal Gait, - - 5 out of 5 strength at the hip knee ankle and foot with normal sensation over all dermatomes. 2+ patellar and Achilles reflexes bilaterally negative clonus. Psychological: Normal affect Diagnostic/Tx/Re-eval - Medical Decision Making Patient presented secondary to low back pain in the setting of cancer. CT imaging of the abdomen and pelvis and lumbar spine are ordered, screening labs were also ordered which were found to be unremarkable. Patient will be signed out to the oncoming physician ED Disposition - Plan for ED Patient: Diagnosis: Back pain Referrals: Todd Allred MD [Primary Care Provider] -
[2020-12-03] MEDS: Ketorolac 30 MG/ML Syringe IV (07:55)
[2020-12-03] MEDS: Ondansetron 4 MG/2 ML Vial IV (07:55)
[2020-12-03] MEDS: morphine 8 MG/ML Syringe 6 MG IV (07:55)
[2020-12-03 08:06] LABS: Bacteria 0 SEEN /hpf (None Seen); Mucous, Urine 0 SEEN /hpf (<or=2+); Red Blood Cells-Urine 0 SEEN /hpf (0-5); Squamous Epithelial Cells - UA 0 SEEN /hpf (0-5); White Blood Cells 0 SEEN /hpf (0-5)
[2020-12-03 08:07] LABS: Color, Urine Yellow (Yellow); Glucose, Dipstick Normal (Normal); Ketone-Dipstick Negative (Negative); Leukocyte Esterase-Dipstick Negative /ul (Negative); Nitrite-Dipstick Negative (Negative); Occult Blood-Urine Negative /ul (Negative); Protein-Dipstick Negative (Negative); Specific Gravity, Urine 1.015 (1.002-1.030); Urine Bilirubin Dipstick Negative (Negative); Urine Clarity Clear (Clear); Urine Urobilinogen Normal (Normal)
--- NOTE | 2020-12-03 10:42 | DCINST.ED_ITS ---
ED Disposition - Plan for ED Patient: Disposition: Home or Assisted Living Diagnosis: Back pain Instructions: ED Back Pain (Acute or Chronic) Prescriptions: Hydrocodone Bitart/Apap 5-325 [[place] 5MG-325MG] 1 - 2 tab PO Q4H PRN PRN 4 Days #20 tab PRN Reason: Pain Prescription Printed Referrals: Todd Allred MD [Primary Care Provider] - As soon as possible Akbar Cardoza MD [NON-STAFF] - As soon as possible Additional Instructions: Need to follow-up to get your MRI done of your lumbar spine. Follow-up with either a local interactive media specialist either at [facility] or here at the hospital or also Dr. Robinson Cardoza had to [facility]. [place] for severe pain. Continue your prednisone your primary care physician put you on.
[2020-12-03] MEDS: morphine 8 MG/ML Syringe IV (10:57)
[2020-12-03 11:14] VITALS: BP 197/124; PULSE 114; PULSE 116; RESP 13; RESP 16; O2SAT 98; O2SAT 99
== END 2020-12-03 11:00 | disposition home or self-care (01) ==
PROVIDERS: Emergency Medicine; Emergency Provider Emergency Medicine; PCP Family Medicine
DX: M54.9 Dorsalgia, unspecified (principal); Z85.048 Personal history of other malignant neoplasm of rectum, rectosigmoid junction, and anus
CPT/HCPCS: 72132; 74177; 80048; 81001; 85025; 96374; 96375; 96376; 99283; Q9967; A4216; J2405

== ENCOUNTER 2021-06-19 05:29 | Day surgery (SDC) | payer BC, SELFPAY ==
[2021-06-19] VITALS (7 sets, daily range): BP systolic 109–138; BP diastolic 71–91; PULSE 56–58; RESP 14–16; TEMP 36.2–36.7; O2SAT 97–100; BMI 27.8
[2021-06-19] MEDS: Lactated Ringers 1,000 ML 100 ML IV (05:55)
--- NOTE | 2021-06-19 06:04 | PCM.HP.STD ---
HPI - General HPI Narrative TRACI MARIE, is a 51 M who presents as a history of rectal cancer. Dr. Hussein Ryder's performed a low anterior resection. Patient presents now for follow-up colonoscopy. His most recent endoscopy was June 29, 2020. This was not remarkable. I removed his port for him September 2020. The patient states that he had a colonoscopy December 2020. This is not documented in our system. This must of been performed per Dr. Hussein Ryder. Past history includes the following I assisted him December 31, 2018 with a colonoscopy. There were 2 separate rectal masses one at about 6 cm from the verge and the second 1 slightly smaller within about 2.5 cm to the anal verge. There was an additional polyp in the descending colon. The patient underwent a laparoscopic transanal total mesorectal excision on May 30, 2019. Pathology showed residual invasive moderately differentiated adenocarcinoma extending into the submucosa.. This was after neoadjuvant chemotherapy. At the time of the clinical exam there was a more distal tubulovillous adenoma closer to the anal verge and then a separate invasive adenocarcinoma slightly more proximally in the rectum. In addition the patient had a diverting loop ileostomy. From the chemotherapy then on August 07, 2019 and he had acute cholecystitis treated with laparoscopic cholecystectomy. He was markedly thrombocytopenic and required replacement prior to proceeding. pT1 pN0 pM I have also assisted the patient previously with a right IJ port placement to facilitate his treatment. [facility]LY [facility] Medical History (Updated 06/18/21 @ 08:40 by Nancy Mijares) Alcohol use Blood in stool Cancer Former smoker History of diverticulitis History of IBS History of rectal cancer Hypokalemia Left flank pain Rectal cancer Screening for intestinal cancer Tubular adenoma of colon Tubulovillous adenoma of rectum Home Medications escitalopram oxalate 20 mg PO DAILY 06/19/21 [History Last Taken Unknown] Allergy/AdvReac Type Severity Reaction Status Date / Time No Known Allergies Allergy Verified 06/19/21 05:55 Family History Grandmother Breast cancer Uncle Cancer Prostate cancer Surgical History (Updated 06/18/21 @ 08:40 by Nancy Mijares) History of colectomy History of colonoscopy History of colostomy reversal History of laparoscopic appendectomy History of left inguinal hernia repair Social History (Updated 11/30/20 @ 14:[address] Todd Ortega MD) Smoking Status: Former smoker alcohol intake: current alcohol intake frequency: a few times a month substance use type: does not use ROS Constitutional Constitutional: Reports systems reviewed and no addt'l complaints, except as documented Cardiovascular Cardiovascular: Denies chest pain Respiratory/Chest Respiratory/Chest: Denies shortness of breath at rest Gastrointestinal Gastrointestinal: Denies abdominal pain, change in bowel habits, hematochezia or melena Vital Signs Vital Signs Vital Signs: 06/19/21 05:55 Temperature 98.1 F Temperature Source Temporal Pulse Rate 57 L Respiratory Rate 16 Respiratory Pattern Normal Blood Pressure 138/85 H Blood Pressure Mean 102 Blood Pressure Source Monitor Blood Pressure Position Sitting Blood Pressure Location Right Arm Pulse Ox 99 Oxygen Delivery Method Room Air Weight Weight: 177 lb 7.554 oz Body Mass Index (BMI) 27.8 Physical Exam Const alert, oriented x3 and no apparent distress General Appearance: cooperative and comfortable Eyes General Eye: normal appearance of both eyes Neck General: normal visual inspection Chest inspection of chest normal Resp Effort and Inspection: able to speak in complete sentences and symmetric chest movement Auscultation: clear to auscultation bilaterally Cardio regular rate and regular rhythm GI soft to palpation, non-tender and non-distended Extremity no calf tenderness Neuro oriented x3 Psych thought process normal Results Lab / Micro Data Micro: Microbiology 06/18/21 10:02 Interface Orders SARS-CoV-2 Antigen (Rapid) - Final Assessment & Plan Assessment/Plan (1) History of rectal cancer: PLAN: 51-year-old gentleman with a history of rectal cancer. He presents via open access for screening colonoscopy. He has had an opportunity to ask and have questions answered. We will proceed as noted. Todd Ortega M.D., F.A.C.S.
--- NOTE | 2021-06-19 06:30 | COLBX_PTH ---
PATIENT: TRACI MARIE LOC: EN U#:[id number] AGE/SX: 51/M ROOM: RE06/19/[address]: Dr. Todd Ortega MD : 1970 BED: DIS: 06/19/2021 SPEC #: [id number] RECD: 06/19/21 09:41 STATUS: DANIELA BELTRAN #: [id number] VIKI: 06/19/21 06:[address]: Todd Ortega DEPT: SURGICAL PATHOLOGY RECD BY: Ru Martins ENTERED: 06/19/21 12:17 SP TYPE: COLON BX OTHR DR: No Primary Care Phys Tissues: Rectum, NOS Procedures: Surgery Specimen Level IV HEADER OPERATION: Colonoscopy (MAC) PRE-OP DIAGNOSIS: Rectal cancer TISSUE SUBMITTED: Rectal biopsy MICROSCOPIC DIAGNOSIS Rectum, biopsy: Squamocolumnar junctional mucosa with mild chronic inflammation and hyperplastic change. No evidence of malignancy. AM:laurence 06/20/2021 COMMENT Reference is made to the patient's rectal lesion at 6 cm biopsy from 2019 ([id number]) in which invasive moderately differentiated adenocarcinoma was identified. MICROSCOPIC DESCRIPTION Slides are reviewed. GROSS DESCRIPTION Received in fixative is one container labeled with the patient's name and designated rectal biopsy. The specimen consists of multiple irregular fragments of light quintero soft tissue that in aggregate measure 2 x 0.6 x 0.1 cm. The specimen is totally submitted in one cassette. / AM:rg 06/19/21 TC:3 CPT: 52220
--- NOTE | 2021-06-19 07:02 | OP.COLON_ITS ---
Patient Name: Alfa Lu Procedure Date: 06/19/2021 6:20 AM Date of : 1970 Age: 51 Procedure: Colonoscopy Indications: High risk colon cancer surveillance: Personal history of colon cancer Providers: Todd Ortega MD Referring MD: Todd Ortega MD Medicines: See the Anesthesia note for documentation of the administered medications Patient Profile: Last Colonoscopy: 6 months ago. Complications: No immediate complications. Procedure: Pre-Anesthesia Assessment: - Prior to the procedure, a History and Physical was performed, and patient medications and allergies were reviewed. The patient's tolerance of previous anesthesia was also reviewed. The risks and benefits of the procedure and the sedation options and risks were discussed with the patient. All questions were answered, and informed consent was obtained. Prior Anticoagulants: The patient has taken no previous anticoagulant or antiplatelet agents. ASA Grade Assessment: II - A patient with mild systemic disease. After reviewing the risks and benefits, the patient was deemed in satisfactory condition to undergo the procedure. After I obtained informed consent, the scope was passed under direct vision. Throughout the procedure, the patient's blood pressure, pulse, and oxygen saturations were monitored continuously. The pediatric colonoscope was introduced through the anus and advanced to the cecum, identified by appendiceal orifice and ileocecal valve. The colonoscopy was performed without difficulty. The patient tolerated the procedure well. The quality of the bowel preparation was fair. The ileocecal valve was photographed. Scope In: 6:33:09 AM Scope Withdrawal Time 0 hours 13 minutes 44 seconds Scope Out: 6:53:42 AM Total Procedure Duration Time 0 hours 20 minutes 33 seconds Findings: The digital rectal exam findings include anal stricture and increased firmness of the prostate. The colon (entire examined portion) appeared normal. There was evidence of a prior end-to-end colo-anal anastomosis in the distal rectum. This was patent and was characterized by mild stenosis. Biopsies were taken with a cold forceps for histology. Impression: - Preparation of the colon was fair. - Anal stricture and increased firmness of the prostate found on digital rectal exam. - The entire examined colon is normal. - Patent end-to-end colo-anal anastomosis, characterized by mild stenosis. Biopsied circumferential, multiple. Recommendation: - Discharge patient to home. - Resume previous diet. - Continue present medications. - Repeat colonoscopy in 6 months for surveillance. - Telephone my office for pathology results in 1 week. Procedure Code(s): --- Professional --- 07841, Colonoscopy, flexible; with biopsy, single or multiple Diagnosis Code(s): --- Professional --- Z85.038, Personal history of other malignant neoplasm of large intestine K62.4, Stenosis of anus and rectum N42.9, Disorder of prostate, unspecified Z98.0, Intestinal bypass and anastomosis status CPT copyright 2017 [employer]. All rights reserved. The codes documented in this report are preliminary and upon locks tender review may be revised to meet current compliance requirements. Todd Ortega MD 06/19/2021 7:02:26 AM This report has been signed electronically. Number of Addenda: 0 Note Initiated On: 06/19/2021 6:20 AM
--- NOTE | 2021-06-19 07:03 | OP.CCLET_ITS ---
06/19/2021 Hussein Ryder [facility] Colorectal surgery Re : Colonoscopy procedure for Alfa Lu Dear Dr. Ryder This procedure was performed on Saturday, June 19, 2021. My impressions and recommendations are as follows: Impressions : - Preparation of the colon was fair. - Anal stricture and increased firmness of the prostate found on digital rectal exam. - The entire examined colon is normal. - Patent end-to-end colo-anal anastomosis, characterized by mild stenosis. Biopsied circumferential, multiple. Recommendations : - Discharge patient to home. - Resume previous diet. - Continue present medications. - Repeat colonoscopy in 6 months for surveillance. - Telephone my office for pathology results in 1 week. My findings are described in the full procedure note, which is enclosed. If I can be of further assistance, please feel free to contact me at Doctor phone number(s): Work: . Sincerely, Todd Ortega MD 06/19/2021 7:02:26 AM This report has been signed electronically.
== END 2021-06-19 07:42 | disposition home or self-care (01) ==
LOC: EN 05:31 → AC 05:32
PROVIDERS: Referring Provider Surgery; Visit Provider Surgery
PROC: 0DJD8ZZ Inspection of Lower Intestinal Tract, Via Natural or Artificial Opening Endoscopic (ICD-10-PCS; CPT 45378; principal; 2021-06-19 06:25)
DX: Z12.11 Encounter for screening for malignant neoplasm of colon (principal); K62.4 Stenosis of anus and rectum; Z20.822 Contact with and (suspected) exposure to COVID-19; N42.9 Disorder of prostate, unspecified; K58.9 Irritable bowel syndrome, unspecified; Z79.899 Other long term (current) drug therapy; Z98.0 Intestinal bypass and anastomosis status; Z85.048 Personal history of other malignant neoplasm of rectum, rectosigmoid junction, and anus; Z92.21 Personal history of antineoplastic chemotherapy; Z87.891 Personal history of nicotine dependence
CPT/HCPCS: 45380; 87426; 88305; C9803; J7120; J2405

== ENCOUNTER 2023-06-23 05:27 | Day surgery (SDC) | payer BC, SELFPAY ==
[2023-06-23] VITALS (7 sets, daily range): BP systolic 106–138; BP diastolic 74–86; PULSE 56–61; RESP 16–18; TEMP 36.3–36.4; O2SAT 97–100; BMI 25.8
[2023-06-23] MEDS: Lactated Ringers 1,000 ML 15 ML IV (05:59)
--- NOTE | 2023-06-23 06:00 | HP.PCM_ITS ---
History and Physical Date of Admission: 06/23/23 Visit Reasons: COLONOSCOPY Chief Complaint: colonoscopy Is patient in pain?: No Allergies No Known Allergies Allergy (Verified 06/02/23 15:24) FORMERLY [facility] Medical History Alcohol use Blood in stool Cancer Former smoker History of diverticulitis History of IBS History of rectal cancer Hypokalemia Left flank pain Rectal cancer Screening for intestinal cancer Tubular adenoma of colon Tubulovillous adenoma of rectum Surgical History History of colectomy History of colonoscopy History of colostomy reversal History of laparoscopic appendectomy History of left inguinal hernia repair Family History Grandmother Breast cancerUncle Cancer Prostate cancer Social History Smoking Status: Former smoker alcohol intake: current alcohol intake frequency: a few times a month substance use type: does not use HPI HPI HPI: 53-year-old gentleman is being referred by Dr. Александр Garsia for surveillance colonoscopy as he has a personal history of rectal cancer.? A written copy of my surgical consult recommendations will return to him.? As of April 24, 2023 the patient's white blood cell count is 5000 with a hemoglobin 13.3 hematocrit 38.7 platelet count 213,000.? BUN 16 and creatinine 1.05.? Albumin 4.3 with a total bilirubin of 0.4 and an alkaline phosphatase of 47 and AST of 29 and ALT of 26 and a total protein is 7.5.? His previous CEA level September 2022 was 0.5.? January 19, 2023 the patient had a chest CT scan which was negative for metastatic disease.? History of cT2N1 rectal adenocarcinoma; ypT1N0 (0 of 19 LNs) the patient was treated by Dr. Hussein Ryder with a low anterior resection.? I have most recently seen him June 19, 2021 where I performed a colonoscopy for him.? On digital exam a degree of anal stenosis stricturing was identified.? Some increased firmness of the prostate.? Colonoscopically the colon appeared to be normal and at the very distal rectum there is evidence of a end-to-end coloanal anastomosis.? Preparation of the colon was fair at that time. The patient presents today stating that January or February he was seen by Dr. Hussein Ryder up at [facility] and there was some concern about some scar tissue. The patient had perhaps a flexible sigmoidoscopy or in the office. Dr. Hussein Ryder would like the patient pursue a colonoscopy. It is of note that on June 19, 2021 I done a rectal biopsy from at that time showing squa mocolumnar junction mucosa with mild chronic inflammation and hyperplastic change without evidence of malignancy. The patient is stating that he has had some bowel habit changes some constipation. He is not sure whether this is diet related. He had gone off his routine psyllium seed fiber supplement but just recently has resumed it. Is of additional note that while working a piece of siding slipped down cutting his right nose. Apparently he did have it sutured with 6 sutures but clearly he has a persistent defect present in the right nasal ala Past history includes the following I assisted him December 31, 2018 with a colonoscopy.? There were 2 separate rectal masses one at about 6 cm from the verge and the second 1 slightly smaller within about 2.5 cm to the anal verge.? There was an additional polyp in the descending colon.? The patient underwent a laparoscopic transanal total mesorectal excision on May 30, 2019.? Pathology showed residual invasive moderately differentiated adenocarcinoma extending into the submucosa..? This was after neoadjuvant chemotherapy.? At the time of the clinical exam there was a more distal tubulovillous adenoma closer to the anal verge and then a separate invasive adenocarcinoma slightly more proximally in the rectum.? In addition the patient had a diverting loop ileostomy.? From the chemotherapy then on August 07, 2019 and he had acute cholecystitis treated with laparoscopic cholecystectomy.? He was markedly thrombocytopenic and required replacement prior to proceeding. pT1 pN0 pM I have also assisted the patient previously with a right IJ port placement to facilitate his treatment ROS General General: Yes colon cancer; No weight change, appetite, fatigue, breast cancer or weakness HEENT HEENT: No difficulty swallowing, eye injury, eye surgery, swollen glands or hoarseness Endo Endocrine: No thyroid disease, diabetes mellitus, thyroid cancer, Hair loss, heat intolerance or cold intolerance Skin Skin: No rash or changing moles Musc Musculoskeletal: No back problems, arthritis, rheumatoid arthritis, gout or joint pain Cardio Cardiovascular: No murmur, pacemaker, heart disease, atrial fibrillation, high blood pressure, heart attack, heart stent, palpitations, shortness of breat with exertion or chest pain Psych Psychiatric: No depression, anxiety or hearing voices Resp Respiratory: No shortness of breath, No sleep apnea, No cough, No COPD, No asthma, No emphysema and No wheezing Gastro Gastrointestinal: No abdominal pain, No nausea or vomiting, No diarrhea, No constipation, No blood in stool, No acid reflux, No hemorrhoids, No ulcers, No gallbladder problem and No black,tarry stools Mina Hematologic: No blood thinners, No blood disorders, No bleeding, No anemia and No blood clots Neuro Neurologic: No system reviewed and no additional complaints, except as documented, No as per HPI, No abnormal gait, No abnormal hearing, No abnormal movements, No abnormal speech, No behavioral changes, No burning sensations, No confusion, No convulsions, No disequilibrium, No dizziness, No localized weakness, No frequent falls, No headache(s), No lack of coordination, No loss of vision, No memory loss, Yes numbness, No other visual disturbances, No radicular pain, No restless legs, No sensory deficit, No syncope, Yes tingling, No tremor(s), No weakness and No other Exam Const General: cooperative, comfortable and no acute distress Nutritional Appearance: average body habitus Orientation: alert and awake HENMT Other: Right nasal ala has a offset defect related to a traumatic laceration. Measures approximately 1.2 cm in length Neck Neck: normal visual inspection Chest Chest palpation & inspection: normal inspection of the chest Resp Effort & Inspection: normal respiratory effort Auscultation: clear to auscultation bilaterally Cardio Rate: regular rate Rhythm: regular rhythm GI Inspection: normal to inspection Palpation: soft and no hepatosplenomegaly Skin General: no rashes or lesions noted Neuro General: patient alert, patient awake and patient oriented x3 Extrem General: no calf tenderness Psych Appearance: grossly normal Assessment and Plan Assessment and Plan (1) History of rectal cancer: Status: Acute (2) Nasal laceration: Status: Acute Qualifiers: Encounter type: initial encounter Qualified Code(s): S01.21XA - Laceration without foreign body of nose, initial encounter Plan: I recommend to the patient a colonoscopy with possible biopsy or polypectomy as indicated. Very careful inspection of the anal rectal area with appropriate biopsies will be pursued. We will try to schedule and expedite his care and he is aware of the technique, benefit, risk and alternatives Reguarding his previously repaired laceration intraorally his right nasal ala this does not appear to be healing well. I recommend to him to allow further time to allow the scar to remodel and have offered him an opportunity to consider a surgical revision of that offset repair. This I believe that I could achieve in an office setting under local anesthesia. He has had an opportunity ask questions answered. We will schedule procedure as noted. I appreciate the ongoing opportunity of assisting with the surgical care Copy: Dr. Hussein Ryder and Dr. Александр Ortega M.D., F.A.C.S I have examined the patient and the H&P has been reviewed. There are no clinical changes since date of exam. Todd Ortega M.D., F.A.C.S.
--- NOTE | 2023-06-23 06:30 | COLBX_PTH ---
PATIENT: TRACI MARIE LOC: EN U#:[id number] AGE/SX: 53/M ROOM: RE06/23/[address]: Dr. Todd Ortega MD : 1970 BED: DIS: 06/23/2023 SPEC #: [id number] RECD: 06/23/23 08:52 STATUS: DANIELA BELTRAN #: [id number] VIKI: 06/23/23 06:[address]: Todd Ortega DEPT: SURGICAL PATHOLOGY RECD BY: Millie Abernathy ENTERED: 06/23/23 09:04 SP TYPE: COLON BX OTHR DR: Brooke Dominguez PA-C Tissues: Rectum, NOS Procedures: Surgery Specimen Level IV HEADER OPERATION: Colonoscopy, biopsy PRE-OP DIAGNOSIS: History of rectal cancer TISSUE SUBMITTED: Rectal anastomosis biopsy MICROSCOPIC DIAGNOSIS Rectal anastomosis, biopsy: Fragments of anorectal mucosa with reactive changes, negative for malignancy. See comment. GHISLAINE:laurence 06/24/2023 COMMENT Clinical correlation and appropriate follow up are necessary. MICROSCOPIC DESCRIPTION Slides are reviewed. GROSS DESCRIPTION Received in fixative is one container labeled with the patient's name and designated rectal anastomosis biopsy. The specimen consists of multiple irregular fragments of light quintero soft tissue that in aggregate measure 1.5 x 0.6 x 0.1 cm. The specimen is totally submitted in one cassette. / SJ:laurence 06/23/2023 TC:5 CPT: 31252
--- NOTE | 2023-06-23 06:57 | OP.COLON_ITS ---
Patient Name: Alfa Lu Procedure Date: 06/23/2023 6:15 AM Date of : 1970 Age: 53 Procedure: Colonoscopy Indications: High risk colon cancer surveillance: Personal history of rectal cancer Providers: Todd Ortega MD Referring MD: Todd Ortega MD Medicines: See the Anesthesia note for documentation of the administered medications Patient Profile: Last Colonoscopy: May 2021. Complications: No immediate complications. Procedure: Pre-Anesthesia Assessment: - Prior to the procedure, a History and Physical was performed, and patient medications and allergies were reviewed. The patient's tolerance of previous anesthesia was also reviewed. The risks and benefits of the procedure and the sedation options and risks were discussed with the patient. All questions were answered, and informed consent was obtained. Prior Anticoagulants: The patient has taken no anticoagulant or antiplatelet agents. ASA Grade Assessment: II - A patient with mild systemic disease. After reviewing the risks and benefits, the patient was deemed in satisfactory condition to undergo the procedure. After I obtained informed consent, the scope was passed under direct vision. Throughout the procedure, the patient's blood pressure, pulse, and oxygen saturations were monitored continuously. The Colonoscope was introduced through the anus and advanced to the cecum, identified by appendiceal orifice and ileocecal valve. The colonoscopy was performed without difficulty. The patient tolerated the procedure well. The quality of the bowel preparation was good. The ileocecal valve and the appendiceal orifice were photographed. Scope In: 6:32:28 AM Scope Withdrawal Time 0 hours 9 minutes 47 seconds Scope Out: 6:47:14 AM Total Procedure Duration Time 0 hours 14 minutes 46 seconds Findings: The digital rectal exam findings include rectal stricture. Pertinent negatives include no anal lesion or abnormality. Scattered diverticula were found in the sigmoid colon. The exam was otherwise without abnormality. Biopsies were taken with a cold forceps in the rectum for histology. Impression: - Rectal stricture found on digital rectal exam. On palpation this was uniform and smooth and nonobstructing. On visualization the anastomosis appeared to have well-healed mucosal with small islands of tissue but no ulcerations or polyps or mass On digital exam diffuse smooth fullness of the anterior rectal wall prostate area noted but not felt to be a focal mass - Diverticulosis in the sigmoid colon. - The examination was otherwise normal. - Biopsies were taken with a cold forceps for histology in the rectum. Recommendation: - Discharge patient to home. - Resume previous diet. - Continue present medications. - Repeat colonoscopy in 2 years for surveillance based on pathology results. - Telephone my office for pathology results in 1 week. Procedure Code(s): --- Professional --- 81657, Colonoscopy, flexible; with biopsy, single or multiple Diagnosis Code(s): --- Professional --- Z85.048, Personal history of other malignant neoplasm of rectum, rectosigmoid junction, and anus K62.4, Stenosis of anus and rectum K57.30, Diverticulosis of large intestine without perforation or abscess without bleeding CPT copyright 2021 [employer]. All rights reserved. The codes documented in this report are preliminary and upon remote coders review may be revised to meet current compliance requirements. Todd Ortega MD 06/23/2023 6:56:45 AM This report has been signed electronically. Number of Addenda: 0 Note Initiated On: 06/23/2023 6:15 AM
--- NOTE | 2023-06-23 06:57 | OP.CCLET_ITS ---
06/23/2023 Александр Garsia [address] [place] [address] Re : Colonoscopy procedure for Alfa Lu Dear Dr. Garsia This procedure was performed on Friday, June 23, 2023. My impressions and recommendations are as follows: Impressions : - Rectal stricture found on digital rectal exam. On palpation this was uniform and smooth and nonobstructing. On visualization the anastomosis appeared to have well-healed mucosal with small islands of tissue but no ulcerations or polyps or mass On digital exam diffuse smooth fullness of the anterior rectal wall prostate area noted but not felt to be a focal mass - Diverticulosis in the sigmoid colon. - The examination was otherwise normal. - Biopsies were taken with a cold forceps for histology in the rectum. Recommendations : - Discharge patient to home. - Resume previous diet. - Continue present medications. - Repeat colonoscopy in 2 years for surveillance based on pathology results. - Telephone my office for pathology results in 1 week. My findings are described in the full procedure note, which is enclosed. If I can be of further assistance, please feel free to contact me at Doctor phone number(s): Work: . Sincerely, Todd Ortega MD 06/23/2023 6:56:45 AM This report has been signed electronically.
== END 2023-06-23 07:25 | disposition home or self-care (01) ==
LOC: EN 05:28 → AC 05:30
PROVIDERS: PCP Family Medicine; Referring Provider Family Medicine; Visit Provider Surgery
PROC: 0DJD8ZZ Inspection of Lower Intestinal Tract, Via Natural or Artificial Opening Endoscopic (ICD-10-PCS; CPT 45378; principal; 2023-06-23 06:30)
DX: Z12.11 Encounter for screening for malignant neoplasm of colon (principal); K62.4 Stenosis of anus and rectum; K57.30 Diverticulosis of large intestine without perforation or abscess without bleeding; Z98.0 Intestinal bypass and anastomosis status; Z90.49 Acquired absence of other specified parts of digestive tract; Z85.048 Personal history of other malignant neoplasm of rectum, rectosigmoid junction, and anus; Z87.891 Personal history of nicotine dependence
CPT/HCPCS: 45380; 88305; J7120; J2405